=== PATIENT | female | born 1965 | race Caucasian/White ===

== ENCOUNTER → 2016-03-14 | Outpatient (CLI) | payer BC, OTHER ==
[~2016-03-14] MED LIST: DPPI400; HYDC25 PO; LISI10TA PO
--- NOTE | 2016-03-14 13:13 | DIAGNOSTIC IMAGING REPORT ---
CT LEFT FOOT NO CONTRAST CT DOSE: 320.00 mGy.cm CLINICAL HISTORY: Left fifth metatarsal fracture TECHNIQUE: Helical images were acquired in the transverse plane. Multiplane are reformatted images were acquired. COMPARISON STUDY: 07/13/2015 FINDINGS: The bones are osteopenic, likely on a disuse basis. There is a fifth metatarsal fracture at the junction of the proximal middle one third. There is no evidence of radiographic union. The fracture is internally fixated with a lateral metallic plate and multiple screws. No additional fractures are visualized. The fracture demonstrates a maximum of 4 mm of distraction. There is a probable fracture of the metallic plate. Plain film correlation is advocated. IMPRESSION: 1. Fifth metatarsal fracture, without evidence of radiographic union. 2. The fracture is internally fixated with a lateral metallic plate which appears fractured. 3. Plain film correlation is recommended to confirm the metallic plate fracture Electronically signed by: Isrrael Frazier M.D. 03/14/2016 1:12 PM Dictated Date/Time: 03/14/2016 1:04 PM
== END | disposition home or self-care (01) ==
LOC: C.CTS 12:27
PROVIDERS: ATTEND Orthopaedic Surgery Sports Medicine
DX: S92.352A Displaced fracture of fifth metatarsal bone, left foot, initial encounter for closed fracture (principal); X58.XXXA Exposure to other specified factors, initial encounter